=== PATIENT | female | born 1990 | race Caucasian/White ===

== ENCOUNTER 2016-07-07 07:43 | Emergency (ER) | payer MEDICARE, OTHER ==
--- NOTE | ~2016-07-07 | EKG ---
PATIENT: ISABELL GARLAND UNIT #: [id number] Ventricular Rate: 102 BPM Atrial Rate: 102 BPM P-R Interval: 150 ms QRS Duration: 92 ms Q-T Interval: 344 ms QTC Calculation(Bezet): 448 ms P Manti: 41 degrees Calculated R Manti: 54 degrees Calculated T Manti: 43 degrees Diagnosis Line: Sinus tachycardia Diagnosis Line: Otherwise normal ECG Diagnosis Line: No previous ECGs available Diagnosis Line: Confirmed by CINDY LEACH MD ([id number]) on Diagnosis Line: 07/07/2016 9:35:25 PM INTERPRETING MD: ERUM
--- NOTE | ~2016-07-07 | CR72 ---
[facility] A Service of [facility] RADIOLOGY TEXT RESULTS PATIENT: ISABELL GARLAND LOCATION: [facility] : [birth year] UNIT #: [id number] AGE: [address]: Ankush Emmanuel MD SEX: F ORDER DR: [id number] [facility] [address] [place], [place] [address] [id number] E MR#: [id number] Acc #: [id number] NAME: ISABELL GARLAND : 1990 SEX: F STUDY DATE/TIME: 07/07/2016 7:52 UNIT: [facility] ROOM: STUDY DESCRIPTION: CR Chest Single View Portable Attending Physician: Damion Emmanuel M.D. Ordering Physician: Jacob Lovelace M.D. Primary Care Physician: Primary Care Physician No MEDICAL IMAGING REPORT This report is preliminary unless electronic signature is present EXAM Single view of the chest dated 07/07/2016 at 0752 hours COMPARISON None. HISTORY Chest pain, heroin overdose today. FINDINGS Single view of the chest was obtained. There is diffuse prominence of the interstitial markings suggestive of mild interstitial lung disease. No obvious pleural effusion, pneumothorax, consolidation or mass. Heart, mediastinum and bones are unremarkable. Mild prominence of bilateral violet are noted. There are no previous studies available for comparison. IMPRESSION There appears to be mild prominence of bilateral violet with some prominence of the interstitial markings diffusely and bilaterally. Differential consideration include congestion and pneumonia based on statistics depending on the clinical presentation. Part of the prominence could also be technical. There are no old studies for comparison. Depending on the clinical need, deep inspiration 2 views of the chest can be obtained as follow up. Dictated by... Fran Quesada M.D. THIS IS AN ELECTRONICALLY VERIFIED REPORT Fran Quesada M.D. at 07/07/2016 3:49 PM CPR/mjs [facility] A Service [facility] RADIOLOGY TEXT RESULTS PATIENT: ISAB[facility]LL GARLAND [id number] [birth year] UNIT #: [id number] AGE: [address]: Ankush Emmanuel MD SEX: F ORDER DR: TD: 07/07/2016 08:51 JOB #: [id number] MEDICAL IMAGING REPORT Page 1 of 1 COPY
== END 2016-07-07 10:26 | disposition home or self-care (01) ==
LOC: CED 07:43
DX: T40.1X1A Poisoning by heroin, accidental (unintentional), initial encounter (principal); Z88.1 Allergy status to other antibiotic agents
CPT/HCPCS: 71010; 93005; 96374; 99283; J2310